=== PATIENT | male | born 1990 | race Caucasian/White ===

== ENCOUNTER 2017-04-19 15:16 | Inpatient (IN) | payer OTHER ==
[2017-04-19 18:24] LABS: Hematocrit 38 % (42-52); Hemoglobin 12.7 g/dl (14.0-18.0); Mean Corpuscular HGB Conc 33 g/dl (31-36); Mean Corpuscular Hemoglobin 31 pg (27-31); Mean Corpuscular Volume 95 fL (80-94); Mean Platelet Volume 8 um3 (7.4-10.4); Red Blood Count 4.06 10^6/ul (4.0-5.4); Red Cell Distribution Width 14 % (10.5-15); White Blood Count 14.6 10^3/ul (3.5-10.8)
[2017-04-19 18:33] LABS: Add Diff/Slide Review? Slide Review Added; Comments Flag Yes
[2017-04-19 18:42] LABS: ALT 89 U/L (7-52); AST 54 U/L (13-39); Albumin 4.3 g/dL (3.2-5.2); Alkaline Phosphatase 63 U/L (34-104); Anion Gap 9 mmol/L (2-11); BUN/Creatinine Ratio 20.8 (8-20); Blood Urea Nitrogen 22 mg/dL (6-24); CO2 Carbon Dioxide 25 mmol/L (22-32); Calcium 9.9 mg/dL (8.6-10.3); Chloride 103 mmol/L (101-111); EGFR African American 108.6 (>60); EGFR Non-African American 84.4 (>60); Globulin 3.4 g/dL (2-4); Glucose 93 mg/dL (70-100); Potassium 3.9 mmol/L (3.5-5.0); Sodium 137 mmol/L (133-145); Total Protein 7.7 g/dL (6.4-8.9)
[2017-04-19] MEDS ORDERED: Mouth Piece, Nicotine* 1 EACH CARTRIDGE INH SCH (19:00)
[2017-04-19 19:02] LABS: Alcohol < 10 mg/dL (<10)
[2017-04-19] MEDS ORDERED: Nicotine GUM* 2 MG PO PRN (21:54)
[2017-04-19] MEDS ORDERED: Al Hydrox/Mg Hydrox/Simet LIQ* 30 ML UDC PO PRN (21:54)
[2017-04-19] MEDS ORDERED: Acetaminophen TAB* 325 MG PO PRN (21:54)
[2017-04-20] MEDS: Haloperidol TAB* 5 MG PO PRN ×2 (00:25→21:04)
[2017-04-20] MEDS ORDERED: Acetaminophen TAB* 325 MG ONE (00:32)
[2017-04-20] MEDS ORDERED: Nicotine Inhaler* 10 MG AMP ONE (00:33)
[2017-04-20] MEDS ORDERED: Mouth Piece, Nicotine* 1 EACH CARTRIDGE ONE (00:33)
[2017-04-20] MEDS: Nicotine Inhaler* 10 MG AMP INH PRN ×2 (00:45→21:07)
[2017-04-20] MEDS: Vitamin THERAPEUTIC TAB PO SCH (10:13)
[2017-04-20] MEDS ORDERED: Permethrin 1% LOTION* 59 ML BTL TOPICAL ONE (13:54)
--- NOTE | 2017-04-20 15:10 | RAD ---
INDICATION: Right ankle pain COMPARISON: None TECHNIQUE: AP and lateral views were obtained. FINDINGS: The bony structures, joint spaces, and soft tissues are normal for age. IMPRESSION: NEGATIVE EXAMINATION.
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
[2017-04-20] MEDS ORDERED: Mouth Piece, Nicotine* 1 EACH CARTRIDGE INH PRN (18:37)
[2017-04-21] MEDS: Nicotine Inhaler* 10 MG AMP INH PRN ×2 (07:45→21:59)
[2017-04-21] MEDS: Vitamin THERAPEUTIC TAB PO SCH (11:36)
[2017-04-21] MEDS ORDERED: Carisoprodol TAB* 350 MG ONE (13:32)
[2017-04-21] MEDS ORDERED: Ibuprofen TAB* 800 MG PO ONE (13:33)
[2017-04-21] MEDS ORDERED: Ibuprofen TAB* 400 MG PO PRN (13:40)
[2017-04-21 13:53] LABS: Call Hep C TO BE CALLED
[2017-04-21] MEDS ORDERED: Ibuprofen TAB* 800 MG PO PRN (14:05)
--- NOTE | 2017-04-21 15:23 | PN ---
Subjective - Subjective Service Type: 58675 Hosp care 15 min low complexity Subjective: The patient is lying down in bed but makes good eye contact and appears to be responding appropriately to questions and reality in general. She continues to deny SI or HI but is not eating on the unit, insisting that she will only consume a restricted diet of candy and [employer] chocolate milk. She appeared to be tremulous and pacing earlier today, concerning staff for possible opioid withdrawal symptoms, and was placed on clonidine, ibuprofen and Soma. She continues to minimize her substance abuse, stating that she only injects heroin twice weekly when her back is hurting. Objective - Appearance Appearance: Thin Framed Dysmorphic Features: No Hygiene: Normal Grooming: Disheveled - Behavior Psychomotor Activities: Abnormal-Increased Exhibits Abnormal Movement: No - Attitude and Relatedness Attitude and Relatedness: Cooperative Eye Contact: Fair - Speech Quality: Unpressured Latencies: Normal Quantity: Appropriate - Mood Patient's Decription of Mood: "Fine" - Affect Observed Affect: Tense Affect Consistent with: Dysphoria - Thought Process Patient's Thought Process: Circumstantial Thought Content: Yes Paranoid Ideation, No Passive Wish, No Suicidal Planning, No Homicidal Ideation - Sensorium Experiencing Hallucinations: Yes - tactile Type of Hallucinations: Visual: No, Auditory: No, Command: No - Level of Consciousness Level of Consciousness: Alert Orientation: Yes Intact, Yes Orientated to Time, Yes Orientated to Place, Yes Orientated to Person - Impulse Control Impulse Control: Poor - Insight and Judgement Insight and Judgement: Impaired - Group Participation Particating in Group Activities: No - Medication Management Medication Management Adherence: Yes Assessment - Assessment Merits Inpatient Hospitalization: For Immediate Safety, For Stabilization Inpatient DSM-IV Dx: Opioid Induced psychotic DO Clinical Impression: 27 y.o. single, transgendered, male to female individual with a history of chronic substance abuse and hystrionic personality traits BIB police on after being found confused and scratching her skin in a public bathroom. The patient has severe skin lesions on her extremities that appear psychogenic and is experiencing tactile hallucinations of bugs crawling out of her skin. She is not eating. Plan - Plan Treatment Plan: Name: RAMON PEÑA II Birthdate: 1990 [id number] We are using prn haloperidol, which the patient has been taking at night to help her sleep, and seems better organized today. She is not eating, however, and her outpatient patient case coordinator through [facility] is encouraging us to detox her further. Continued Medication Management: Start Medication Medications: Current Medications Acetaminophen (Tylenol Tab*) 650 mg PO Q4H PRN PRN Reason: PAIN or TEMP > 101 F Last Admin: 04/20/17 00:45 Dose: 650 mg Al Hydrox/Mg Hydrox/Simethicone (Maalox Plus*) 30 ml PO Q4H PRN PRN Reason: INDIGESTION Carisoprodol (Soma Tab*) 350 mg PO Q6H PRN PRN Reason: MUSCLE CRAMPS/ACHES Device (Nicotine Mouth Piece*) 1 each INH ONCE PRN PRN Reason: CRAVINGS Haloperidol (Haldol Tab*) 5 mg PO Q4H PRN PRN Reason: AGITATION Last Admin: 04/20/17 21:04 Dose: 5 mg Ibuprofen (Motrin Tab*) 400 mg PO Q6H PRN PRN Reason: PAIN-MILD Ibuprofen (Motrin Tab*) 800 mg PO Q6H PRN PRN Reason: PAIN-SEVERE Multivitamins (Theragran Tab*) 1 tab PO DAILY [facility] Last Admin: 04/21/17 11:36 Dose: Not Given Nicotine (Nicotine Inhaler*) 10 mg INH Q2H PRN PRN Reason: CRAVING Last Admin: 04/21/17 07:45 Dose: 10 mg Nicotine (Nicotine Patch 21 Mg/24 Hr*) 1 patch TRANSDERM DAILY@0800 [facility] Nicotine Polacrilex (Nicotine Gum*) 2 mg PO Q2H PRN PRN Reason: CRAVING Pharmacy Profile Note (Nicotine Patch Removal Note*) 1 note PATCH OFF 2100 [facility] - Discharge Plan Discharge Plan: Inpatient Hospitalization
[2017-04-21] MEDS: Carisoprodol TAB* 350 MG PO PRN (19:56)
[2017-04-21] MEDS ORDERED: diPHENhydraMINE LIQ* 12.5 MG/5 ML UDC PO PRN (20:00)
[2017-04-21] MEDS: Nicotine Patch Removal NOTE PATCH OFF SCH (20:33)
[2017-04-21] MEDS: Haloperidol TAB* 5 MG PO PRN (21:40)
[2017-04-21] MEDS ORDERED: Mouth Piece, Nicotine* 1 EACH CARTRIDGE ONE (21:58)
[2017-04-22] MEDS: Carisoprodol TAB* 350 MG PO PRN ×3 (08:13→20:07)
[2017-04-22] MEDS: Vitamin THERAPEUTIC TAB PO SCH (08:14)
[2017-04-22] MEDS: Nicotine Inhaler* 10 MG AMP INH PRN (08:14)
[2017-04-22] MEDS: Nicotine PATCH 21 MG/24 HR* PATCH TRANSDERM SCH (08:14)
[2017-04-22] MEDS ORDERED: diPHENhydraMINE IV* 50 MG/ML 1 ml VIAL (BENADRYL) ONE (10:56)
[2017-04-22] MEDS ORDERED: diPHENhydraMINE IV* 50 MG/ML 1 ml VIAL (BENADRYL) IM ONE (12:24)
[2017-04-22] MEDS ORDERED: traZODone TAB* 100 MG PO PRN (12:25)
--- NOTE | 2017-04-22 12:31 | PN ---
Subjective - Subjective Service Type: 63327 Hosp care 15 min low complexity Subjective: Fadia is c/o uncomfortable, dystonic tightening in her tongue, presumably secondary to haldol, but denies SI or HI. She is continuing to request discharge, not wanting to wait for the family meeting with Ysabel, her casemanager from [facility]. She is denying tactile hallucinations but only eating light snacks such as crackers and granola cereal. Objective - Appearance Appearance: Thin Framed Dysmorphic Features: No Hygiene: Normal Grooming: Disheveled - Behavior Psychomotor Activities: Abnormal-Decreased Exhibits Abnormal Movement: No - Attitude and Relatedness Attitude and Relatedness: Cooperative Eye Contact: Fair - Speech Quality: Unpressured Latencies: Normal Quantity: Appropriate - Mood Patient's Decription of Mood: "Fine" - Affect Observed Affect: Fair Affect Consistent with: Euthymia - Thought Process Patient's Thought Process: Coherent Thought Content: No Passive Wish, No Suicidal Planning, No Homicidal Ideation, No Paranoid Ideation - Sensorium Experiencing Hallucinations: No, Sensorium is Clear Type of Hallucinations: Visual: No, Auditory: No, Command: No - Level of Consciousness Level of Consciousness: Alert Orientation: Yes Intact, Yes Orientated to Time, Yes Orientated to Place, Yes Orientated to Person - Impulse Control Impulse Control: Poor - Insight and Judgement Insight and Judgement: Impaired - Group Participation Particating in Group Activities: No - Medication Management Medication Management Adherence: Partial Assessment - Assessment Merits Inpatient Hospitalization: Consolidate Improvements, Pending Safe DC Plan Inpatient DSM-IV Dx: Opioid Induced psychotic DO Clinical Impression: 27 y.o. single, transgendered, male to female individual with a history of chronic substance abuse and hystrionic personality traits BIB police on after being found confused and scratching her skin in a public bathroom. The patient has severe skin lesions on her extremities that appear psychogenic and is experiencing tactile hallucinations of bugs crawling out of her skin. She is not eating. Plan - Plan Treatment Plan: Name: RAMON PEÑA II Birthdate: 1990 [id number] We will d/c prn haloperidol, d/t EPS. One dose Benadryl 50mg IM. Her disease case manager through [facility] is coming in for therapeutic d/ c planning meeting tomorrow afternoon at 13:00 and we will likely d/c the patient home thereafter. Continued Medication Management: Consider Medication Medications: Current Medications Acetaminophen (Tylenol Tab*) 650 mg PO Q4H PRN PRN Reason: PAIN or TEMP > 101 F Last Admin: 04/20/17 00:45 Dose: 650 mg Al Hydrox/Mg Hydrox/Simethicone (Maalox Plus*) 30 ml PO Q4H PRN PRN Reason: INDIGESTION Carisoprodol (Soma Tab*) 350 mg PO Q6H PRN PRN Reason: MUSCLE CRAMPS/ACHES Last Admin: 04/22/17 08:13 Dose: 350 mg Device (Nicotine Mouth Piece*) 1 each INH ONCE PRN PRN Reason: CRAVINGS Last Admin: 04/22/17 08:14 Dose: 1 each Diphenhydramine HCl (Benadryl Liq*) 50 mg PO Q6H PRN PRN Reason: TONGUE SWELLING Last Admin: 04/21/17 20:16 Dose: 50 mg Diphenhydramine HCl (Benadryl Iv*) 50 mg IM ONCE ONE Stop: 04/22/17 12:25 Ibuprofen (Motrin Tab*) 400 mg PO Q6H PRN PRN Reason: PAIN-MILD Ibuprofen (Motrin Tab*) 800 mg PO Q6H PRN PRN Reason: PAIN-SEVERE Last Admin: 04/21/17 17:05 Dose: 800 mg Multivitamins (Theragran Tab*) 1 tab PO DAILY [facility] Last Admin: 04/22/17 08:14 Dose: 1 tab Nicotine (Nicotine Inhaler*) 10 mg INH Q2H PRN PRN Reason: CRAVING Last Admin: 04/22/17 08:14 Dose: 10 mg Nicotine (Nicotine Patch 21 Mg/24 Hr*) 1 patch TRANSDERM DAILY@0800 [facility] Last Admin: 04/22/17 08:14 Dose: 1 patch Nicotine Polacrilex (Nicotine Gum*) 2 mg PO Q2H PRN PRN Reason: CRAVING Pharmacy Profile Note (Nicotine Patch Removal Note*) 1 note PATCH OFF 2100 [facility] Last Admin: 04/21/17 20:33 Dose: Not Given Trazodone HCl (Desyrel Tab*) 100 mg PO BEDTIME PRN PRN Reason: INSOMNIA - Discharge Plan Discharge Plan: Outpatient Follow Up Outpatient Program: [facility]
[2017-04-22] MEDS: Nicotine Patch Removal NOTE PATCH OFF SCH (20:08)
[2017-04-23 08:16] VITALS: BP 119/72
[2017-04-23] MEDS: Nicotine PATCH 21 MG/24 HR* PATCH TRANSDERM SCH (09:02)
[2017-04-23] MEDS: Vitamin THERAPEUTIC TAB PO SCH (09:02)
[2017-04-23] MEDS: Carisoprodol TAB* 350 MG PO PRN (09:03)
--- NOTE | 2017-04-23 11:40 | PN ---
[facility]: Group Therapy Note - Service Type Service Type: 04336 Group Psychotherapy - Cognitive Behavioral Group Therapy ( CBT):Patient was attentive and participatory in CBT programming this morning, and remained in good behavioral control. Patient expressed positive insights regarding relevant treatment interventions and goals.
[2017-04-23] MEDS ORDERED: Nicotine GUM* 2 MG PO PRN (12:42)
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
--- NOTE | 2017-04-26 11:19 | ED ---
I, Oh,Soohyun, scribed for Shai Lopez MD on 04/19/17 at 1552 . Psychiatric Complaint - HPI Summary HPI Summary: This 27 y/o male presents to ED after digging out of bugs out skin with pocket knife in bathroom. Negative SI or HI. "I am just scared that I have a bug on me ". Pt states that his "scabs are because of bug bites". Pt is noted tearful and sniffing at time of initial evaluation. Pt is currently living alone in [place] at this moment. 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 Pt also reports right ankle injury. Last time pt was prescribed to pain medication was in August. Last heroine this morning. Plan of care involving CXR evaluation is discussed, but pt declines stating that he "doesn't trust it". Pt was offered a meal in ED but declines again. - History Of Current Complaint Chief Complaint: EDMentalHealth Time Seen by Provider: 04/19/17 15:32 Hx Obtained From: Patient, EMS Onset/Duration: Sudden Onset Timing: Constant Character: Anxious Aggravating Factor(s): Nothing Alleviating Factor(s): Nothing Related History: Positive For: Prior Psychiatric Issues Has Suicidal: Denies: Thoughts Has Homicidal: Denies: Thoughts - Allergies/Home Medications Allergies/Adverse Reactions: Allergies Allergy/AdvReac Type Severity Reaction Status Date / Time Tramadol Allergy Mild Itching Verified 08/06/16 12:26 PMH/Surg Hx/FS Hx/Imm Hx Endocrine/Hematology History: Denies: Hx Diabetes Cardiovascular History: Denies: Hx Hypertension, Hx Pacemaker/ICD Respiratory History: Denies: Hx Asthma History: Denies: Hx Dialysis, Hx Renal Disease Sensory History: Denies: Hx Hearing Aid Neurological History: Reports: Hx Seizures Psychiatric History: Reports: Hx Eating Disorder, Hx Depression, Hx Community Mental Health Tx, Hx Substance Abuse Denies: Hx Panic Disorder, Hx of Violent Episodes Against Others - Immunization History Date of Tetanus Vaccine: 2004 Date of Influenza Vaccine: none Infectious Disease History: Reports: Hx Hepatitis - hep c Denies: Hx Clostridium Difficile, Hx Human Immunodeficiency Virus (HIV), Hx of Known/Suspected MRSA, Hx Shingles, Hx Tuberculosis, Hx Known/Suspected VRE, Hx Known/Suspected VRSA, History Other Infectious Disease, Traveled Outside the [place] in Last 30 Days - Family History Known Family History: Positive: Cardiac Disease, Hypertension - Social History Alcohol Use: Rare Hx Substance Use: Yes Substance Use Type: Reports: Heroin, Marijuana Substance Use Comment - Amount & Last Used: for pain control Hx Tobacco Use: Yes Smoking Status (MU): Heavy Every Day Tobacco Smoker Type: Cigarettes Review of Systems Negative: Fever, Chills Negative: Erythema Negative: Sore Throat Negative: Chest Pain Negative: Shortness Of Breath, Cough Negative: Abdominal Pain Negative: dysuria, hematuria Negative: Myalgia, Edema Positive: Other - scabs. Negative: Rash Neurological: Other - Negative dizziness Positive: Anxious All Other Systems Reviewed And Are Negative: Yes Physical Exam - Summary Physical Exam Summary: Constitutional: Well-developed, Well-nourished, Alert. (-) Distressed Skin: Warm, Dry. (+) Excorpriated scabs that do not correspond with bug bite. HENT: Normocephalic; Atraumatic Eyes: Conjunctiva normal Neck: Musculoskeletal ROM normal neck. (-) JVD, (-) Stridor, (-) Tracheal deviation Cardio: Rhythm regular, rate normal, Heart sounds normal; Intact distal pulses; The pedal pulses are 2+ and symmetric. Radial pulses are 2+ and symmetric. (-) Murmur Pulmonary/Chest wall: Effort normal. (-) Respiratory distress, (-) Wheezes, (-) Rales Abd: Soft, (-) Tenderness, (-) Distension, (-) Guarding, (-) Rebound Musculoskeletal: (-) Edema Lymph: (-) Cervical adenopathy Neuro: Alert, Oriented x3 Psych: Anxious appearing Triage Information Reviewed: Yes Vital Signs On Initial Exam: Initial Vitals Temp Pulse Resp BP Pulse Ox 97.8 F 126 20 130/88 97 04/19/17 15:21 04/19/17 15:21 04/19/17 15:21 04/19/17 15:21 04/19/17 15:21 Vital Signs Reviewed: Yes Diagnostics - Vital Signs Vital Signs Temp Pulse Resp BP Pulse Ox 04/19/17 15:21 97.8 F 126 20 130/88 97 - Laboratory Result Diagrams: 04/19/17 18:07 04/19/17 18:07 Lab Statement: Any lab studies that have been ordered have been reviewed, and results considered in the medical decision making process. Course/Dx - Course Assessment/Plan: This 27 y/o male presents to ED as 945 after found digging pocket knife into his thigh. Pt states that he was simply attempting to "remove bugs". PMHx is significant for IVDA, and Pt admits to heroine use today AM. He refuses meals and X-ray evaluation of his RLE ankle injury. Pt is admitted psych unit after [facility]. - Differential Dx/Clinical Impression Provider Diagnosis: substance induced psychosis - Physician Notifications Instructed by Provider To: Admit As Inpatient Patient Is Medically Stable For: Psych Evaluation - 1830 PM Discharge - Discharge Plan Condition: Stable Disposition: ADMITTED TO [facility] Referrals: No Primary Care Phys,NOPCP [Primary Care Provider] - The documentation as recorded by the Robbin urbina Soohyun accurately reflects the service I personally performed and the decisions made by , Shai Lopez MD.
== END 2017-04-23 14:20 | disposition home or self-care (01) | DRG 773 ==
LOC: ED 15:16 → BSU 22:18
PROVIDERS: ADMIT Psychiatry & Neurology Psychiatry; ATTEND Psychiatry & Neurology Psychiatry
DX: F11.251 Opioid dependence with opioid-induced psychotic disorder with hallucinations (principal); E53.8 Deficiency of other specified B group vitamins; F15.10 Other stimulant abuse, uncomplicated; F60.4 Histrionic personality disorder; L25.9 Unspecified contact dermatitis, unspecified cause; F54 Psychological and behavioral factors associated with disorders or diseases classified elsewhere; F11.23 Opioid dependence with withdrawal; F17.210 Nicotine dependence, cigarettes, uncomplicated
CPT/HCPCS: 36415; 80053; 80320; 82607; 85025; 85610; 85730; 86703; 86803; 90853; 99222; 99231; 99238; A9270-GY; G0480; J1200

== ENCOUNTER 2017-05-06 03:31 | Emergency (ER) | payer OTHER ==
[2017-05-06] MEDS ORDERED: Clindamycin CAP* 150 MG PO ONE (04:37)
[2017-05-06 04:54] VITALS: BP 160/65
--- NOTE | 2017-05-06 05:08 | ED ---
Danny Narvaez Alok, scribed for Ashu Resendiz MD on 05/06/17 at 0504 . Skin Complaint - HPI Summary HPI Summary: 27M presents with multiple lesions over arms and legs for the last 1-2 days. Pt states he has tried applying neosporin and antibacterial pads resulting in clear drainage. Pt notes sleeping in unhygienic places and states he has noticed worms in his stools and eyes for the last week. Pt also notes difficulty breathing, increased weakness, and right thigh numbness. Pt notes right ankle injury recently. Pt denies pruritus, fever, or chills. Pt denies recent travel. Pt is a heroin drug user and last used earlier today. Pt denies h /o MRSA. Pt has NKDA> - History of Current Complaint Chief Complaint: EDRashSkinAbscess Time Seen by Provider: 05/06/17 04:13 Stated Complaint: POSS INFECTION ALL OVER/HEAVIER BREATHING Hx Obtained From: Patient Onset/Duration: Started Days Ago, Atraumatic, Still Present Timing: Constant Onset Severity: Moderate Current Severity: Moderate Pain Intensity: 0 Pain Scale Used: 0-10 Numeric Skin Location: Arm, Leg Character: Redness Aggravating Symptom(s): Nothing Alleviating Symptom(s): Nothing Associated Signs & Symptoms: Weakness, Difficulty Breathing - Additional Pertinent History Primary Care Physician: [id number] - Allergy/Home Medications Allergies/Adverse Reactions: Allergies Allergy/AdvReac Type Severity Reaction Status Date / Time Tramadol Allergy Mild Itching Verified 04/20/17 16:18 PMH/Surg Hx/FS Hx/Imm Hx Endocrine/Hematology History: Reports: Hx Anemia Denies: Hx Diabetes Cardiovascular History: Denies: Hx Hypertension, Hx Pacemaker/ICD Respiratory History: Denies: Hx Asthma History: Denies: Hx Dialysis, Hx Renal Disease Musculoskeletal History: Reports: Hx Back Problems - pt reports back pain Sensory History: Denies: Hx Contacts or Glasses, Hx Hearing Aid Opthamlomology History: Denies: Hx Contacts or Glasses Neurological History: Reports: Hx Seizures Psychiatric History: Reports: Hx Anxiety, Hx Eating Disorder, Hx Depression, Hx Inpatient Treatment, Hx Community Mental Health Tx, Hx Substance Abuse Denies: Hx Panic Disorder, Hx of Violent Episodes Against Others - Immunization History Date of Tetanus Vaccine: 2004 Date of Influenza Vaccine: none Infectious Disease History: No Infectious Disease History: Reports: Hx Hepatitis - hep c Denies: Hx Clostridium Difficile, Hx Human Immunodeficiency Virus (HIV), Hx of Known/Suspected MRSA, Hx Shingles, Hx Tuberculosis, Hx Known/Suspected VRE, Hx Known/Suspected VRSA, History Other Infectious Disease, Traveled Outside the [place] in Last 30 Days - Family History Known Family History: Positive: Cardiac Disease, Hypertension - Social History Occupation: Unemployed Alcohol Use: Rare Hx Substance Use: Yes Substance Use Type: Reports: Heroin, Marijuana Substance Use Comment - Amount & Last Used: for pain control Hx Tobacco Use: Yes Smoking Status (MU): Heavy Every Day Tobacco Smoker Type: Cigarettes Review of Systems Negative: Fever, Chills Positive: Shortness Of Breath Positive: Rash Positive: Weakness All Other Systems Reviewed And Are Negative: Yes Physical Exam - Summary Physical Exam Summary: The patient is well-nourished in no acute distress and in no acute pain. The skin is warm and dry and skin color reflects adequate perfusion. Multiple discrete well-defined macular, vesicular lesions with some purulent centers diffusely on arms and legs. No evidence of ring worm and lesions are inconsistent with scabies. Track hendrix on both arms. HEENT: The head is normocephalic and atraumatic. The pupils are equal and reactive. The conjunctivae are clear and without drainage. Nares are patent and without drainage. Mouth reveals moist mucous membranes and the throat is without erythema and exudate. The external ears are intact. The ear canals are patent and without drainage. The tympanic membranes are intact. Neck is supple with full range of motion and non-tender. There are no carotid bruits. There is no neck vein distension. Respiratory: Chest is non-tender. Lungs are clear to auscultation and breath sounds are symmetrical and equal. No rales, rhonchi, or wheezes. Cardiovascular: Heart is regular rate and rhythm. There is no murmur or rub auscultated. There is no peripheral edema and pulses are symmetrical and equal. Neurovascular intact. Abdomen: The abdomen is soft and non-tender. There are normal bowel sounds heard in all four quadrants and there is no organomegaly palpated. Musculoskeletal: There is no back pain noted. Extremities are non-tender with full range of motion. There is good capillary refill. There is no peripheral edema or calf tenderness elicited. Neurological: Patient is alert and oriented to person, place and time. The patient has symmetrical motor strength in all four extremities. Cranial nerves are grossly intact. Deep tendon reflexes are symmetrical and equal in all four extremities. Psychiatric: The patient appears anxious. Triage Information Reviewed: Yes Vital Signs On Initial Exam: Initial Vitals Temp Pulse Pulse Ox 98.1 F 111 99 05/06/17 03:57 05/06/17 03:57 05/06/17 03:57 Vital Signs Reviewed: Yes - Red Level Coma Scale Coma Scale Total: 14 Diagnostics - Vital Signs Vital Signs Temp Pulse Resp BP Pulse Ox 05/06/17 04:24 98.1 F 111 20 132/83 99 05/06/17 04:20 98.1 F 111 20 00/00 99 05/06/17 03:57 98.1 F 111 99 - Laboratory Lab Statement: Any lab studies that have been ordered have been reviewed, and results considered in the medical decision making process. Course/Dx - Course Course Of Treatment: 27 y/o male presents with multiple discrete well-defined macular, vesicular lesions with some purulent centers diffusely on arms and legs. No evidence of ring worm and lesions are inconsistent with scabies. Track hendrix on both arms. Will treat as MRSA and discharge home with rx for Climdamyacin. - Diagnoses Provider Diagnoses: Folliculitis Discharge - Discharge Plan Condition: Stable Disposition: HOME Prescriptions: Clindamycin Cap(NF) [Cleocin 300 mg Cap(NF)] 300 mg PO Q6H #28 cap Patient Education Materials: Folliculitis (ED) Referrals: Mitali Ferrell MD [Primary Care Provider] - Additional Instructions: Please follow up with Dr. Ferrell The documentation as recorded by the Danny urbina Alok accurately reflects the service I personally performed and the decisions made by , Ashu Resendiz MD.
== END 2017-05-06 04:45 | disposition home or self-care (01) ==
LOC: ED 03:31
DX: L73.9 Follicular disorder, unspecified (principal); F17.210 Nicotine dependence, cigarettes, uncomplicated; F11.10 Opioid abuse, uncomplicated
CPT/HCPCS: 99282; A9270-GY